=== PATIENT | male | born 1945 | race Caucasian/White ===

== ENCOUNTER → 2021-06-10 | Outpatient (CLI) | payer MEDICARE, OTHER ==
--- NOTE | 2021-06-10 15:18 | Diagnostic Imaging Report ---
INDICATION: History of kidney stones. COMPARISON: None. FINDINGS: A single frontal radiographic view of the abdomen was obtained and demonstrates small extraosseous calcifications projecting over the inferior pole of the right kidney, consistent with probable nephrolithiasis. No unexpected radiopaque foreign bodies are seen. The small bowel loops are nondistended. There is no large collection of free intraperitoneal air. The osseous structures show age-related degenerative changes. IMPRESSION: 1. Probable right renal calculus. 2. Nonobstructed small bowel gas pattern. Dictated by: Dictated on workstation # [id number]
== END ==
LOC: RAD 13:22
PROVIDERS: ATTEND Urology
DX: R10.9 Unspecified abdominal pain (principal); Z87.442 Personal history of urinary calculi
CPT/HCPCS: 74018